=== PATIENT | female | born 1960 | race Caucasian/White ===

== ENCOUNTER 2017-04-14 12:20 | Emergency (ER) | payer MEDICARE, MEDICAID ==
[~2017-04-14] VITALS: Ht 165.1 cm; Wt 59.0 kg
--- NOTE | 2017-04-14 12:58 | Urgent Treatment Center Report ---
History of Present Issue Date/Time Seen by Provider 04/14/17 1254 Visit Reason Pt arrived:Walked Presenting Problem:PT C/O RT FOOT PAIN FOLLOWING A FALL Location if Accident:Home Onset of symptoms date/time:/ or onset unknown for:MEDICAL HX UNKNOWN Have you (or family members/close friends) recently traveled outside the [place]? N If Yes, where/when: Have you had exposure to infectious disease within the past month? TB? Other? Specify: c/o right foot pain s/p fall 2 days ago. Reports she was carrying a 5 year old down concrete steps when her right ankle twisted causing her to fall scraping right foot on edge of concrete. Immediately cleaned wounds w/ peroxide and witch edenilson. No treatment since. Scabbed now without redness, drainage, swelling. Denies ankle or leg pain. pain primarily right lateral foot. Worse w/ ambulation. Hasn't taken or tried anything for symptoms. "Only here because my daughter in law is a [employer] and said I should get it xrayed to be sure nothing was broken." Source patient Exam Limitations no limitations ALLERGIES Coded Allergies: Penicillins (Mild, 04/14/17) morphine (Mild, 04/14/17) History Medical History General CAD? No Angina: No SC: No Hypertension? No Hyperlipidemia? No CHF? No DVT? No PE? No COPD? No Asthma? No Anemia? No GERD? No Gastric ulcers? No GI Bleed? No Hernia? No Thyroid Problems? No Hypothyroidism? No CVA? No Seizures? No Diabetes? No Renal Insuffiency? No UTI? No Stones? No BPH? No GB Disease: No Nephritic Syndrome? No Asplenia? No Hepatitis? No Sickle Cell Disease? No Arthritis? No Migraines? No Cataracts? No Glaucoma? No MRSA? No HIV? No TB? No Anxiety? No Depression? No Cancer? No More? No Immunization HX DT/Tetanus Unknown Surgical Hx Previous Surgery?N Social History Smoking Hx Smoker: Current Every Day Smoker Tobacco: Yes Type Cigarettes Alcohol Alcohol: No Review of Systems All Other Systems Reviewed and Negative Musculoskeletal see HPI Skin see HPI Psychiatric/Neurological denies numbness, denies tingling Physical Exam Vital Signs Vital Signs Date Time Temp Pulse Resp B/P Pulse O2 O2 Flow FiO2 Ox Delivery Rate 04/14 1235 98.3 101 14 125/68 98 General Appearance normal appearance, no apparent distress, seated in exam chair , right LE elevated Respiratory Status No: respiratory distress. Cardiovascular no peripheral edema Peripheral Pulses Pulses normal Yes (DP/PT) Back gait abnormality (limp favoring right) Extremities normal range of motion (right ankle and toes), normal inspection ( right Lower leg, ankle, toes), tenderness right lateral midfoot and 5th metatarsal Neurologic alert, no motor/sensory deficits Skin three approx 1cm round abrasions right lateral midfoot, all scabbed without any sign of infection. Medical Decision Making LABS/Meds/Orders Pt receiving controlled substance in ED? No Results/Orders Orders Procedure Date/time Status FOOT-RT-3 VIEWS 04/14 1258 Active XRAY/CT/US XRAY/CT/US XRAY foot (right) XR interpretation by reviewed by me (w/ BRIAN Mcmanus) Xray Results no acute findings Departure Departure Time of Disposition 1323 Disposition DC Home or Self Care(routine) Clinical Impression Primary Impression: Right foot sprain Qualifiers: Encounter type: initial encounter Qualified Code: S93.601A - Unspecified sprain of right foot, initial encounter Secondary Impressions: Abrasion, foot w/o infection Condition STABLE Referrals FRANCIS GORDON DPM Call Sunday and schedule follow up. Patient Instructions DI for Abrasion, DI for Foot Sprain, How to Use a Walking Boot Additional Instructions * weight bearing as tolerated * Rest * ice 15-20 mins 3-4 times a day * walking boot for support and swelling unless in shower. Be sure not too tight but not too loose either * Elevate as discussed as much as possible to help reduce swelling and therefore , pain * Ibuprofen every 6 hours as needed for pain and inflammation. If you need something more, you can take tylenol every 4 hours as needed as long as your primary care provider has told you it is ok to take both. * Continue to clean abrasions w/ mild soap and water. pat dry. apply antibiotic ointment. Monitor. Appear to be healing nicely without any sign of infection. Seek treatment for redness, swelling, warmth or drainage. Discharge Counseling Counseled pt/family regarding diagnosis, test results, medications/RX, home care, follow up needs at [phone]
[2017-04-14 13:29] VITALS: BP 125/68
--- NOTE | 2017-04-14 14:22 | RADIOLOGY REPORT PS360 ---
FOOT-RT-3 VIEWS HISTORY: Pain following injury twisted ankle and fell down steps 2 days ago, pain lateral ORDERING PHYSICIAN: FLORENCIO MEDINA APRN PATIENT AGE: 56 years COMPARISON: None FINDINGS: No fracture or dislocation. No lytic or blastic change. There is normal mineralization.. The joint spaces are well-preserved. No significant degenerative/arthritic changes. No erosive changes evident. IMPRESSION: Negative, no acute finding
== END 2017-04-14 13:41 | disposition home or self-care (01) ==
LOC: UTC 12:20
DX: S93.601A Unspecified sprain of right foot, initial encounter (principal); W10.9XXA Fall (on) (from) unspecified stairs and steps, initial encounter; Z88.0 Allergy status to penicillin; Z88.6 Allergy status to analgesic agent; Z72.0 Tobacco use